=== PATIENT | male | born 1940 | race Hispanic/Latino ===

== ENCOUNTER 2018-08-01 12:52 | Inpatient (IN) | payer MEDICARE ==
[2018-08-01 12:52] VITALS: BMI 25.4
[2018-08-01 12:56] VITALS: O2SAT 100
--- NOTE | 2018-08-01 13:07 | ED PDOC ---
Psych Transfer Clearance - Clearance Statement Clearance Statement: Reviewed vital signs, lab results and transfer papers. Patient clinically stable for psychiatric admission.
[2018-08-01] MEDS ORDERED: Bismuth Subsalicylate 262 mg/15 ml Sus (240 ml) PO PRN (13:53)
[2018-08-01] MEDS ORDERED: Alum-Mag Hydrox-Simethicone Susp (30 mL) PO PRN (13:53)
[2018-08-01] MEDS ORDERED: Magnesium Hydroxide Susp 30 ml UD PO PRN (13:53)
--- NOTE | 2018-08-01 14:03 | PCM.PSYCH ---
Initial Psychiatric Evaluation - Initial Psychiatric Evaluation Type of Admission: Voluntary Legal Status: Capacity Chief Complaint (in patient's own words): "I've been drinking for 5 days." Patient's Reaction to Hospitalization: HPI: 77 yo male w/ h/o depression and alcohol use disorder, presented acutely intoxicated to [facility] w/ BAL 281, with worsening depression, poor sleep/appetite, feeling of hopelessness and anxiety. Patient has been drinking gin daily. No acute AH/VH/SI/HI. He reports that he has not been compliant with any of his medications. A + O x 3. PPHx: Denies past psychiatric history of psychiatric admissions. Denies h/o suicide attempts. Receives Xanax and an antidepressant from his PMD, patient unable to confirm which one. PMHx: HTN, patient reports he has a history of bladder cancer, denies receiving chemo/radiation/surgery, BPH ALL: NKDA SHx: Lives w/ ; +Alcohol abuse, smokes 1 pack per month, denies drug use. Current Medications: Active Medications Generic Name Dose Route Start Last Admin Trade Name Freq PRN Reason Stop Dose Admin Acetaminophen 650 mg 08/01/18 13:53 Tylenol 325mg Tab PO Q4 PRN Pain, moderate (4-7) Al Hydrox/Mg Hydrox/Simethicone 30 ml 08/01/18 13:53 Maalox Plus 30 Ml PO Q4 PRN Dyspepsia Bismuth Subsalicylate 524 mg 08/01/18 13:53 Pepto-Bismol PO Q4 PRN Diarrhea Diphenhydramine HCl 50 mg 08/01/18 13:56 Benadryl PO HS PRN Sleep Lorazepam 2 mg 08/01/18 14:00 Ativan PO TID DANIELE Lorazepam 1 mg 08/01/18 13:51 Ativan PO Q4 PRN Anxiety Lorazepam 1 mg 08/01/18 13:54 Ativan PO HS PRN insomnia Lorazepam 1 mg 08/01/18 13:55 Ativan IM Q4 PRN Agitation Magnesium Hydroxide 30 ml 08/01/18 13:53 Milk Of Magnesia PO HS PRN Constipation Trazodone HCl 50 mg 08/01/18 13:56 Desyrel PO HS PRN insomnia Past Psychiatric History - Past Psychiatric History Pertinent Medical Hx (Current Medical&Sleep Prob, Allergies): Allergies Allergy/AdvReac Type Severity Reaction Status Date / Time No Known Allergies Allergy Verified 08/01/18 03:28 Alprazolam 1 mg PO HS 07/17/16 Hydrochlorothiazide [Microzide] 12.5 mg PO DAILY 07/17/16 Metoprolol Succinate XL [Toprol XL] 25 mg PO DAILY 07/17/16 Tamsulosin [Flomax] 0.4 mg PO DAILY 07/17/16 amLODIPine [Norvasc] 5 mg PO DAILY 07/17/16 Mental Status Examination - Personal Presentation Personal Presentation: Looks stated age Additional comments: Malodorous, smells like alcohol - Affect Affect: Constricted, Depressed - Motor Activity Motor Activity: Calm - Reliability in Providing Information Reliability in Providing Information: Fair - Speech Speech: Coherent - Mood Mood: Depressed, Anxious - Formal Thought Process Formal Thought Process: Loosening of associations - Hallucinations/Delusions Additional comments: Denies AH/VH/paranoia/delusions - Obsessions/Compulsions Obsessions: No Compulsions: No - Cognitive Functions Orientation: Person, Place, Situation, Time Sensorium: Alert Judgement: Imparied, as evidence by: Poor judgement Memory: Recent impaired, as evidence by: Inability to recall events of the day - Risk Risk: Withdrawal, Diminished functioning - Strength & Assets Inventory Strength & Assets Inventory: Family support, Cooperative - Limitations Limitations: Decreased memory, recent DSM 5 DX - DSM 5 DSM 5 Diagnosis: Depressive Disorder (MDD vs Alcohol Induced Mood Disorder), Alcohol Use Disorder - Recommended/Plan of Treatment Treatment Recommendations and Plan of Treatment: Depressive Disorder (MDD vs Alcohol Induced Mood Disorder), Alcohol Use Disorder -Admit to psychiatry unit -Ativan as needed for alcohol withdrawal -Start Remeron 7.5 mg PO HS -Medicine consult -Obtain collateral history -Individual and group therapy -Psychoeducation -Disposition planning Projected ELOS: 5-10 days Discharge Plan and Discharge Criteria: Discharge when patient is psychiatrically stable - Smoking Cessation Smoking Cessation Initiated: No Reason for not providing: Patient declined
--- NOTE | 2018-08-01 15:08 | PCM.BM ---
<Theodora Rose - Last Filed: 08/01/18 15:05> Treatment Plan Problems - Problems identified on initial assessmt Medication nonadherence Date Initiated: 08/01/18 Time Initiated: 15:07 Assessment reference: NA Status: Active Self Care Deficit Date Initiated: 08/01/18 Time Initiated: 15:09 Assessment reference: NA Status: Active Altered Health Maintenance Date Initiated: 08/01/18 Time Initiated: 15:12 Assessment reference: NA Status: Active Feelings of Worthlessness Date Initiated: 08/01/18 Time Initiated: 15:08 Assessment reference: NA Status: Active Knowledge Deficit: Alcohol Use Date Initiated: 08/01/18 Time Initiated: 15:11 Assessment reference: NA Status: Active Treatment assets and liabiliti Patient Assests: adapts well, ADL independent - Milieu Protocol Maintain good personal hygiene: daily Encourage regular showers, daily Remind patient to perform daily oral care, daily Assist patient to perform ADL's Maintain personal safety: every shift Educate patient to report safety concerns to staff, every shift Monitor environment for contraband/sharps Medication safety: Monitor for expected outcome, potential side effects: every shift, Assess barriers to learning: every shift, Assess readiness for medication education: every shift Milieu Narrative: Depressive Disorder (MDD vs Alcohol Induced Mood Disorder), Alcohol Use Disorder -Admit to psychiatry unit -Ativan as needed for alcohol withdrawal -Obtain collateral history -Individual and group therapy -Psychoeducation -Disposition planning Discharge/Continuing Care - Treatment Team Participation Patient/Family/SO Statement: Depressive Disorder (MDD vs Alcohol Induced Mood Disorder), Alcohol Use Disorder -Admit to psychiatry unit -Ativan as needed for alcohol withdrawal -Obtain collateral history -Individual and group therapy -Psychoeducation -Disposition planning <Celia Santana - Last Filed: 08/02/18 10:40> Treatment Plan Problems - Problems identified on initial assessmt Medication nonadherence Date Initiated: 08/01/18 Time Initiated: 15:07 Assessment reference: NA Status: Active Self Care Deficit Date Initiated: 08/01/18 Time Initiated: 15:09 Assessment reference: NA Status: Active Altered Health Maintenance Date Initiated: 08/01/18 Time Initiated: 15:12 Assessment reference: NA Status: Active Feelings of Worthlessness Date Initiated: 08/01/18 Time Initiated: 15:08 Assessment reference: NA Status: Active Knowledge Deficit: Alcohol Use Date Initiated: 08/01/18 Time Initiated: 15:11 Assessment reference: NA Status: Active Problem 2 Date Initiated: 08/01/18 Time Initiated: 15:08 Assessment reference: NA Status: Active Problem 4 Date Initiated: 08/01/18 Time Initiated: 15:11 Assessment reference: NA Status: Active - Diagnosis (1) Depressive disorder Status: Acute Interventions: Medication management, Individual and group therapy, Psychoeducation 08/02/18 10:41 (2) Alcohol use disorder Status: Acute Interventions: Medication management, Individual and group therapy, Psychoeducation 08/02/18 10:41 Treatment Plan Review - Problem Medication nonadherence Time Initiated: 15:07 Self Care Deficit Time Initiated: 15:09 Altered Health Maintenance Time Initiated: 15:12 Feelings of Worthlessness Time Initiated: 15:08 Knowledge Deficit: Alcohol Use Time Initiated: 15:11 Problem 2 Time Initiated: 15:08 Problem 4 Time Initiated: 15:11 <Guillermina Martines M - Last Filed: 08/05/18 13:55> Family Contact Family involvement: Family/SO is involved Family contact: Patient agrees to contact, Family has been contacted by patient, Telephone contact initiated by staff Family contact name: Satnam - significant other Discharge/Continuing Care - Education Needs Education Needs: Family Medication, Family Diagnosis/Disease Process, Family Coping Skills, Family Community resources, Family Activities of Daily Living, Family Health Practices/Safety, Family Personal Hygiene/Grooming, Family Aftercare Safety Plan, Patient Medication, Patient Diagnosis/Disease Process, Patient Coping Skills, Patient Community resources, Patient Activities of Daily Living, Patient Health Practices/Safety, Patient Personal Hygiene/Grooming, Patient Aftercare Safety Plan - Discharge Discharge Criteria: Tolerates medication w/o severe side effects, Free of Suicidal thoughts, Free of agitation, Normal sleep pattern, Ability to care for self, Reduction of target symptoms Discharge to:: Home, With Family - Additional Comments 08/05/18 13:47 LATE ENTRY FORM 08/02/2018: Pt seen and discussed in team meeting. Reason for hospitalization reviewed and discussed. Pt reported "I have been suffering with depression." Pt reported ETOH abuse for the past 5 days. Pt reported feeling overwhelmed at the moment. Pt reported poor sleep prior to hospitalization. Pt reported alcohol withdrawals. Attending psychiatrist reviewed and discussed medications with pt at length. Please refer to attending MD progress note for additional information. Pt's medical and social issues reviewed and discussed. Pt signed consent for , Satnam ([phone]). SW to continue to follow case. - Treatment Team Participation Discussed with Family/SO: No Was Patient/Family/SO present at Treatment Team Meeting: Yes
[2018-08-02 07:06] LABS: HEMOGLOBIN 11.7 g/dL (12.0-18.0); MEAN CELL VOLUME 92.1 fl (80.0-94.0); MEAN CORPUSCULAR HEMOGLOBIN 31.1 pg (27.0-31.0); MEAN CORPUSCULAR HGB CONC 33.8 g/dL (33.0-37.0); RBC 3.75 Mil/uL (4.40-5.90); RED CELL DISTRIBUTION WIDTH 14.2 % (11.5-14.5)
[2018-08-02 07:27] LABS: ALB/GLOB RATIO 1.4 (1.0-2.1); ALBUMIN 3.7 g/dL (3.5-5.0); ALT/SGPT 33 U/L (21-72); AST/SGOT 59 U/L (17-59); BLOOD UREA NITROGEN 26 mg/dl (9-20); CALCIUM 8.6 mg/dL (8.4-10.2); GFR NON-AFRICAN AMERICAN > 60; HDL CHOLESTEROL 54 MG/DL (30-70)
[2018-08-02 07:41] LABS: LDL CHOLESTEROL 96 mg/dL (0-129)
[2018-08-02 07:42] LABS: T4 6.04 ug/dl (5.5-11.0)
--- NOTE | 2018-08-02 08:41 | CT ---
Date of service: 08/01/2018 PROCEDURE: CT HEAD WITHOUT CONTRAST. HISTORY: pt fell and reports hitting his head COMPARISON: None available. TECHNIQUE: Axial computed tomography images were obtained through the head/brain without intravenous contrast. Radiation dose: Total exam DLP = 837.21 mGy-cm. This CT exam was performed using one or more of the following dose reduction techniques: Automated exposure control, adjustment of the mA and/or kV according to patient size, and/or use of iterative reconstruction technique. FINDINGS: HEMORRHAGE: No intracranial hemorrhage. BRAIN: No mass effect or edema. Mild diffuse age-appropriate cerebral atrophy. Mild periventricular white matter lucency consistent with chronic microvascular white matter ischemic change. No evidence of acute infarct. VENTRICLES: Unremarkable. No hydrocephalus. CALVARIUM: Unremarkable. PARANASAL SINUSES: Unremarkable as visualized. No significant inflammatory changes. MASTOID AIR CELLS: Unremarkable as visualized. No inflammatory changes. OTHER FINDINGS: None. IMPRESSION: No intracranial hemorrhage. Age related atrophy and chronic white matter ischemic change. The preliminary findings for this examination were reported by [facility] at 8:23 p.m. on 08/01/2018. There is concurrence of this report with the preliminary findings.
--- NOTE | 2018-08-02 10:45 | PCM.PYCHPN ---
Psychiatric Progress Note - Psychiatric Progress Note Patient seen today, length of contact: Pt evaluated, case discussed w/ team, chart reviewed Patient Chief Complaint: Depression Problems Identified/Issues Discussed: Patient continues to feel depressed, w/ low mood, low motivation, feelings of hopelessness and anxiety. He denies current AH/VH/SI/HI. We discussed that the ativan will be tapered daily. No current signs/symptoms of ETOH withdrawal. Psychoeducation provided on the dangers of alcohol abuse. Medication Change: Yes (Taper Ativan) Medical Record Reviewed: Yes Consults ordered or reviewed: Medicine consult ordered Mental Status Examination - Cognitive Function Orientation: Person, Place, Situation, Time Decription of patient's judgement and insights: Improving I/J - Mood Mood: Depressed, Anxious - Affect Affect: Constricted, Depressed - Speech Speech: Appropriate - Formal Thought Process Formal Thought Process: Circumstantial Psychotic Thoughts and Behaviors: NO AH/VH/paranoia - Suicidal Ideation Suicidal Ideation: No - Homicidal Ideation Homicidal Ideation: No Goal/Treatment Plan - Goal/Treatment Plan Need for Continued Stay: Remain at risks for inpatient hospitalization, Discharge may exacerbated symptoms Progress Toward Problem(s) and Goals/Treatment Plan: Depressive Disorder (MDD vs Alcohol Induced Mood Disorder), Alcohol Use Disorder -Ativan as needed for alcohol withdrawal; will taper gradually daily -Continue Remeron 7.5 mg PO HS -Thiamine/Folate -Medicine consult ordered -Obtain collateral history -Individual and group therapy -Psychoeducation -Disposition planning
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
[2018-08-02 13:24] LABS: FOLATE > 20.0 ng/mL
[2018-08-03] MEDS: HCTZ/Losartan 12.5/50 Tab PO SCH (08:49)
[2018-08-04] MEDS: HCTZ/Losartan 12.5/50 Tab PO SCH (08:55)
--- NOTE | 2018-08-04 22:11 | PCM.PYCHPN ---
Psychiatric Progress Note - Psychiatric Progress Note Patient seen today, length of contact: late note for [id number] Pt evaluated, case discussed w/ team, chart reviewed Patient Chief Complaint: somewhat less depressed denies excitation shakes tremors. staff report pt rx adherent. seen about unit. Problems Identified/Issues Discussed: alteratiion in coping alteration in mood Medical Problems: per chart Diagnostic Results: per psychiatry, per nursing, per social work DSM 5 Symptoms Update: some improvement mood, no reported withdrawals Medication Change: No Medical Record Reviewed: Yes Consults ordered or reviewed: pt seen by medical [facility] Mental Status Examination - Cognitive Function Orientation: Person, Place, Situation, Time Attention: WNL Concentration: WNL Association: WNL Fund of Knowledge: [facility] Decription of patient's judgement and insights: impaired - Mood Mood: Depressed, Anxious - Affect Affect: Constricted, Depressed - Speech Speech: Appropriate - Formal Thought Process Formal Thought Process: Circumstantial - Homicidal Ideation Homicidal Ideation: No Goal/Treatment Plan - Goal/Treatment Plan Need for Continued Stay: Remain at risks for inpatient hospitalization, Discharge may exacerbated symptoms Progress Toward Problem(s) and Goals/Treatment Plan: inpt milieu adjust med per clinical status lorazepam taper for etoh w/d protocol vital signs per clinical status and per protocol discharge planning in progress Estimated Date of D/C: 08/09/18 - Smoking Cessation Smoking Cessation Initiated: No Reason for not providing: pt defers
--- NOTE | 2018-08-04 22:14 | PCM.PYCHPN ---
Psychiatric Progress Note - Psychiatric Progress Note Patient seen today, length of contact: late note for [id number] Pt evaluated, case discussed w/ team, chart reviewed Patient Chief Complaint: somewhat less depressed denies excitation shakes tremors. staff report pt rx adherent. seen about unit. Problems Identified/Issues Discussed: alteratiion in coping alteration in mood Medical Problems: per chart Diagnostic Results: per psychiatry, per nursing, per social work Medication Change: No Medical Record Reviewed: Yes Consults ordered or reviewed: pt seen by medical team Mental Status Examination - Cognitive Function Orientation: Person, Place, Situation, Time Attention: WNL Concentration: WNL Association: WN Fund of Knowledge: [facility] Decription of patient's judgement and insights: impaired - Mood Mood: Depressed, Anxious - Affect Affect: Constricted, Depressed - Speech Speech: Appropriate - Formal Thought Process Formal Thought Process: Circumstantial - Suicidal Ideation Suicidal Ideation: No - Homicidal Ideation Homicidal Ideation: No Goal/Treatment Plan - Goal/Treatment Plan Need for Continued Stay: Remain at risks for inpatient hospitalization, Discharge may exacerbated symptoms Progress Toward Problem(s) and Goals/Treatment Plan: inpt milieu adjust med per clinical status lorazepam taper for etoh w/d protocol vital signs per clinical status and per protocol discharge planning in progress Estimated Date of D/C: 08/09/18 - Smoking Cessation Smoking Cessation Initiated: No Reason for not providing: pt defers
[2018-08-05] MEDS: HCTZ/Losartan 12.5/50 Tab PO SCH (09:26)
[2018-08-05 16:07] VITALS: TEMP 97.6
--- NOTE | 2018-08-05 19:11 | PCM.PYCHPN ---
Psychiatric Progress Note - Psychiatric Progress Note Patient seen today, length of contact: Pt evaluated, case discussed w/ team, chart reviewed Patient Chief Complaint: seen speaks of feeling like he wants to leave, feels as though has is ready to leave, staff reported that pt has submitted a 48 hour notice, staff reported attempted to redirect explain but pt reports that wants to leave, pt was visited by , explained list of standing medications that pt is receiving, reviewed and circled medications received on a standing basis (reviewed those not circled are were not standing medications) somewhat less depressed denies excitation shakes tremors. staff report pt rx adherent. somewhat remains in room, at times seen walking about unit. . Problems Identified/Issues Discussed: alteratiion in coping alteration in mood Medical Problems: per chart Diagnostic Results: per psychiatry, per nursing, per social work DSM 5 Symptoms Update: sleeping improved, denies shakes tremors, denies tactile hallucinations. Medication Change: No Medical Record Reviewed: Yes Consults ordered or reviewed: pt seen by medical provider Mental Status Examination - Cognitive Function Orientation: Person, Place, Situation, Time Attention: WNL Concentration: WNL Association: WNL Fund of Knowledge: WN Decription of patient's judgement and insights: impaired - Mood Mood: Neutral - Affect Affect: Constricted - Speech Speech: Soft - Formal Thought Process Formal Thought Process: No Impairment - Suicidal Ideation Suicidal Ideation: No - Homicidal Ideation Homicidal Ideation: No Goal/Treatment Plan - Goal/Treatment Plan Need for Continued Stay: Remain at risks for inpatient hospitalization, Discharge may exacerbated symptoms Progress Toward Problem(s) and Goals/Treatment Plan: inpt milieu adjust med per clinical status pt signed a 48 hour notice, received explanation significance, reviewed if pt discharged tomorrow would be ama-no prescriptions would be provided, reviewed pt may follow up with primary provider list of standing medications with pt reviewed, family counseling with vital signs per clinical status and per protocol discharge planning in progress Estimated Date of D/C: 08/09/18 - Smoking Cessation Smoking Cessation Initiated: No Reason for not providing: pt defers
[2018-08-06 05:49] VITALS: BP 111/70; PULSE 77; RESP 18
[2018-08-06] MEDS: HCTZ/Losartan 12.5/50 Tab PO SCH (08:33)
== END 2018-08-06 14:00 | disposition home or self-care (01) | DRG 881 ==
LOC: H.ER 12:52 → H.ERHOLD 13:06 → H.STEP 13:49
PROVIDERS: ADMIT Psychiatry & Neurology Psychiatry; ATTEND Psychiatry & Neurology Psychiatry
PROC: GZHZZZZ Group Psychotherapy (ICD-10-PCS; principal; 2018-08-01)
PROC: GZ58ZZZ Individual Psychotherapy, Cognitive-Behavioral (ICD-10-PCS; 2018-08-01)
PROC: HZ52ZZZ Individual Psychotherapy for Substance Abuse Treatment, Cognitive-Behavioral (ICD-10-PCS; 2018-08-01)
DX: F32.9 Major depressive disorder, single episode, unspecified (principal); F10.129 Alcohol abuse with intoxication, unspecified; F41.9 Anxiety disorder, unspecified; I10 Essential (primary) hypertension; Y90.6 Blood alcohol level of 120-199 mg/100 ml; Z91.14 Patient's other noncompliance with medication regimen; Z91.19 Patient's noncompliance with other medical treatment and regimen; F17.210 Nicotine dependence, cigarettes, uncomplicated; Z85.828 Personal history of other malignant neoplasm of skin; Z85.51 Personal history of malignant neoplasm of bladder